=== PATIENT | female | born 1985 | race Caucasian/White ===

== ENCOUNTER 2016-11-07 15:41 | Emergency (ER) | payer MEDICAID ==
[2016-11-07 16:02] VITALS: BP 105/43
[2016-11-07] MEDS ORDERED: predniSONE TAB* 20 MG PO ONE (17:18)
--- NOTE | 2016-11-18 10:17 | UC ---
Skin Complaint HPI - HPI Summary HPI Summary: 31 YO FEMALE WITH CHRONIC HIVES X 2 MONTHS NOW WITH SWELLING OF HANDS AND FEET NO CP OR SOB - History of Current Complaint Chief Complaint: UCGeneralIllness Time Seen by Provider: 11/07/16 17:05 Stated Complaint: RASH Hx Obtained From: Patient Hx Last Menstrual Period: 10/31/16 Onset/Duration: Sudden Onset, Lasting Days Timing: Constant Onset Severity: Mild Current Severity: Mild Pain Intensity: 0 Pain Scale Used: 0-10 Numeric Location: Hand (Right), Hand (Left), Foot (Right), Foot (Left) Aggravating Factor(s): Nothing Alleviating Factor(s): Nothing Associated Signs & Symptoms: Positive: Rash - Allergy/Home Medications Allergies/Adverse Reactions: Allergies Allergy/AdvReac Type Severity Reaction Status Date / Time bee Allergy Anaphylatic Uncoded 11/07/16 16:02 Shock Home Medications: Home Medications diPHENhydraMINE PO* [Benadryl PO 25 MG TAB*] 25 mg PO Q6H PRN 11/07/16 [History Confirmed 11/07/16] Review of Systems Constitutional: Negative Skin: Rash Eyes: Negative ENT: Negative Respiratory: Negative Cardiovascular: Negative Gastrointestinal: Negative Genitourinary: Negative Motor: Negative Neurovascular: Negative Musculoskeletal: Negative Neurological: Negative Psychological: Negative Is Patient Immunocompromised?: No All Other Systems Reviewed And Are Negative: Yes PMH/Surg Hx/FS Hx/Imm Hx Previously Healthy: Yes - Surgical History Surgical History: Yes Surgery Procedure, Year, and Place: Tubal - Family History Known Family History: Positive: Hypertension - Social History Alcohol Use: None Substance Use Type: None Smoking Status (MU): Heavy Every Day Tobacco Smoker Amount Used/How Often: 1/2 ppd Length of Time of Smoking/Using Tobacco: started age 14 Physical Exam Triage Information Reviewed: Yes Appearance: No Pain Distress, Well-Nourished, Ill-Appearing Vital Signs: Initial Vital Signs Temp 98.4 F 11/07/16 15:57 Pulse 76 11/07/16 15:57 Resp 16 11/07/16 15:57 BP 105/43 11/07/16 15:57 Pulse Ox 98 11/07/16 15:57 Vital Signs Reviewed: Yes Eyes: Positive: Conjunctiva Clear ENT: Positive: Hearing grossly normal. Negative: Nasal congestion, Nasal drainage, Trismus, Muffled/hoarse voice Neck: Positive: Supple, Nontender Respiratory: Positive: Lungs clear, Normal breath sounds, No respiratory distress, No accessory muscle use Cardiovascular: Positive: RRR, No Murmur Abdomen Description: Positive: No Organomegaly, Soft. Negative: CVA Tenderness (R), CVA Tenderness (L), Distended Musculoskeletal: Positive: Other: - ANGIOEDEMA OF HANDS AND FEET Neurological: Positive: Alert Psychological Exam: Normal Skin Exam: Other - SCATTERED HIVES Course/Dx - Diagnoses Provider Diagnoses: ANGIOEDEMA. CHRONIC HIVES Discharge - Discharge Plan Condition: Stable Disposition: HOME Prescriptions: Fexofenadine (NF) [Kacey (NF)] 60 mg PO QAM PRN #14 tab PRN Reason: Itching Prednisone [Deltasone] 40 mg PO DAILY #10 tab hydrOXYzine HCL TAB* [Atarax TAB*] 25 - 50 mg PO DAILY PRN #20 tab PRN Reason: Itching Patient Education Materials: Angioedema (ED) Referrals: Khoa MERCADO,Edd Solano [Primary Care Provider] - As Soon As Possible Additional Instructions: recheck for new or worsening symptoms
== END 2016-11-07 17:30 | disposition home or self-care (01) ==
LOC: UCEAST 15:41
DX: T78.3XXA Angioneurotic edema, initial encounter (principal); Z91.030 Bee allergy status; F17.210 Nicotine dependence, cigarettes, uncomplicated
CPT/HCPCS: 99202; G0463; J7512

== ENCOUNTER 2017-07-16 17:59 | Emergency (ER) | payer OTHER ==
--- NOTE | 2017-07-16 19:37 | RAD ---
INDICATION: Bruising at the third distal metacarpal region following punching injury. COMPARISON: No relevant prior exams available on the [facility] PACS for comparison. TECHNIQUE: AP, and lateral views RIGHT hand. REPORT AND IMPRESSION: Soft tissue swelling superficial to the metacarpal phalangeal joints on the lateral view. Negative for fracture or articular malalignment within limits of 2 view radiographic exam.
[2017-07-16] MEDS ORDERED: HYDROcodone/ACETAMIN 5-325 MG* 1 TAB PO ONE (20:56)
--- NOTE | 2017-07-16 20:57 | ED ---
Upper Extremity Pain - HPI Summary HPI Summary: Complains of pain and swelling to right hand after punching a door 3 days ago. Denies loss of sensation or function, abrasion or laceration - History of Current Complaint Chief Complaint: EDExtremityUpper Stated Complaint: RT HAND INJURY Time Seen by Provider: 07/16/17 19:23 Hx Obtained From: Patient Hx Last Menstrual Period: 10/31/16 Mechanism Of Injury: Blunt Trauma Onset/Duration: Started Days Ago - Allergies/Home Medications Allergies/Adverse Reactions: Allergies Allergy/AdvReac Type Severity Reaction Status Date / Time No Known Drug Allergies Allergy Unknown Verified 07/16/17 18:01 Reaction Details bee Allergy Anaphylatic Uncoded 07/16/17 18:01 Shock Home Medications: Home Medications Divalproex DR TAB(*) [Depakote DR TAB(*)] 250 mg PO BID 07/16/17 [History Confirmed 07/16/17] Lurasidone(*) [Latuda] 20 mg PO DAILY 07/16/17 [History Confirmed 07/16/17] PMH/Surg Hx/FS Hx/Imm Hx Endocrine/Hematology History: Denies: Hx Diabetes Cardiovascular History: Denies: Hx Hypertension - Surgical History Surgery Procedure, Year, and Place: Tubal Infectious Disease History: No Infectious Disease History: Denies: Traveled Outside the [place] in Last 30 Days - Family History Known Family History: Positive: Hypertension - Social History Alcohol Use: None Substance Use Type: Reports: None Smoking Status (MU): Heavy Every Day Tobacco Smoker Amount Used/How Often: 1/2 ppd Length of Time of Smoking/Using Tobacco: started age 14 Review of Systems Constitutional: Negative Eyes: Negative ENT: Negative Cardiovascular: Negative Respiratory: Negative Gastrointestinal: Negative Genitourinary: Negative Musculoskeletal: Negative Skin: Negative Neurological: Negative Psychological: Normal All Other Systems Reviewed And Are Negative: Yes Physical Exam - Summary Physical Exam Summary: Mild swelling to the MCP joint of third and fourth fingers. Flexion and extension of right hand intact. No erythema, extra warmth, abrasions, lacerations. PMS intact in right hand Triage Information Reviewed: Yes Vital Signs On Initial Exam: Initial Vitals Temp Pulse Resp BP Pulse Ox 98.4 F 91 16 105/82 99 07/16/17 18:01 07/16/17 18:01 07/16/17 18:01 07/16/17 18:01 07/16/17 18:01 Vital Signs Reviewed: Yes Appearance: Positive: Well-Appearing Skin: Positive: Warm Head/Face: Positive: Normal Head/Face Inspection Eyes: Positive: Normal Neck: Positive: Supple Respiratory/Lung Sounds: Positive: Clear to Auscultation Cardiovascular: Positive: Normal Abdomen Description: Positive: Nontender Musculoskeletal: Positive: Normal Neurological: Positive: Normal Psychiatric: Positive: Normal AVPU Assessment: Alert - [place] Coma Scale Best Eye Response: 4 - Spontaneous Best Motor Response: 6 - Obeys Commands Best Verbal Response: 5 - Oriented Coma Scale Total: 15 Diagnostics - Vital Signs Vital Signs Temp Pulse Resp BP Pulse Ox 07/16/17 18:01 98.4 F 91 16 105/82 99 - Laboratory Lab Statement: Any lab studies that have been ordered have been reviewed, and results considered in the medical decision making process. - Radiology hand Xray Interpretation: No Acute Changes Radiology Interpretation Completed By: Radiologist Course/Dx - Course Course Of Treatment: Complains of pain and swelling to right hand after punching a door 2 days ago. Denies loss of sensation or function. X-ray negative for fracture. Mild swelling to the MCP joint of third and fourth digits. No erythema, abrasions or lacerations. Recommend ibuprofen, ice - Diagnoses Provider Diagnoses: Hand sprain Discharge - Sign-Out/Discharge Documenting (check all that apply): Discharge/Admit/Transfer - Discharge Plan Condition: Stable Disposition: HOME Patient Education Materials: Hand Sprain (ED) Referrals: Julian Leger [Primary Care Provider] - Additional Instructions: Ibuprofen, and ice 10-15 minutes at a time per hour. Cover hand with provided Charles bandage for protection. Return to the ED for any new or worsening symptoms - Billing Disposition and Condition Condition: STABLE Disposition: HOME
[2017-07-16 21:08] VITALS: BP 114/78
== END 2017-07-16 21:08 | disposition home or self-care (01) ==
LOC: ED 17:59
DX: S63.91XA Sprain of unspecified part of right wrist and hand, initial encounter (principal); W22.8XXA Striking against or struck by other objects, initial encounter; Y92.9 Unspecified place or not applicable; F17.200 Nicotine dependence, unspecified, uncomplicated
CPT/HCPCS: 99282

== ENCOUNTER 2017-09-23 12:31 | Emergency (ER) | payer OTHER ==
--- NOTE | 2017-09-23 13:22 | RAD ---
INDICATION: Cough COMPARISON: April 12, 2010 TECHNIQUE: PA and lateral dual-energy views were obtained. FINDINGS: Bones/Soft Tissues: There are no acute bony findings. Cardiomediastinal: The cardiomediastinal silhouette is normal. Lungs: There are no infiltrates. Pleura: There are no pleural effusions. Other: None IMPRESSION: NO ACTIVE DISEASE.
--- NOTE | 2017-09-23 13:25 | ED ---
Respiratory - HPI Summary HPI Summary: 32-year-old female presents with cough for the past week. She states she has been having chest pain when she coughs. She states it feels more like a tightness. She admits to shortness of breath. No abdominal pain. No nausea. No sore throat. She admits to sinus congestion that has not worsened. No ear pain. No headache. She's been using mucinex but has not been able to cough anything up. She is a smoker. No pain or swelling in her calf muscles. Does not have a family history of cardiac disease. No medical conditions. Chest pain is also reproducible. - History of Current Complaint Chief Complaint: EDUpperRespComplaint Stated Complaint: CHEST PRESSURE Time Seen by Provider: 09/23/17 13:02 Pain Intensity: 5 - Allergy/Home Medications Allergies/Adverse Reactions: Allergies Allergy/AdvReac Type Severity Reaction Status Date / Time No Known Drug Allergies Allergy Unknown Verified 07/16/17 18:01 Reaction Details bee Allergy Anaphylatic Uncoded 07/16/17 18:01 Shock PMH/Surg Hx/FS Hx/Imm Hx Endocrine/Hematology History: Denies: Hx Diabetes Cardiovascular History: Denies: Hx Hypertension - Surgical History Surgery Procedure, Year, and Place: Tubal Infectious Disease History: No Infectious Disease History: Denies: Traveled Outside the [place] in Last 30 Days - Family History Known Family History: Positive: Hypertension - Social History Alcohol Use: None Substance Use Type: Reports: None Smoking Status (MU): Heavy Every Day Tobacco Smoker Amount Used/How Often: 1/2 ppd Length of Time of Smoking/Using Tobacco: started age 14 Review of Systems Positive: Fever Positive: Chest Pain Positive: Shortness Of Breath, Cough Negative: Abdominal Pain All Other Systems Reviewed And Are Negative: Yes Physical Exam Triage Information Reviewed: Yes Vital Signs On Initial Exam: Initial Vitals Temp Pulse Resp BP Pulse Ox 97.5 F 84 16 114/77 98 09/23/17 12:44 09/23/17 12:44 09/23/17 12:44 09/23/17 12:44 09/23/17 12:44 Vital Signs Reviewed: Yes Appearance: Positive: Well-Appearing Skin: Positive: Warm, Dry Head/Face: Positive: Normal Head/Face Inspection Eyes: Positive: Normal, EOMI, MARIA, Conjunctiva Clear ENT: Positive: Normal ENT inspection, Pharynx normal, TMs normal Respiratory/Lung Sounds: Positive: Clear to Auscultation, Breath Sounds Present , Other - reproducible chest pain Cardiovascular: Positive: Normal, RRR Abdomen Description: Positive: Nontender, Soft Bowel Sounds: Positive: Present Musculoskeletal: Positive: Normal Neurological: Positive: Normal Psychiatric: Positive: Normal Diagnostics - Vital Signs Vital Signs Temp Pulse Resp BP Pulse Ox 09/23/17 12:44 97.5 F 84 16 114/77 98 - Laboratory Lab Statement: Any lab studies that have been ordered have been reviewed, and results considered in the medical decision making process. - Radiology chest Xray Interpretation: No Acute Changes Radiology Interpretation Completed By: Radiologist Disposition - Course Course Of Treatment: 32-year-old female presents with cough for the past week. She states she has been having chest pain when she coughs. She states it feels more like a tightness. She admits to shortness of breath. No abdominal pain. No nausea. No sore throat. She admits to sinus congestion that has not worsened. No ear pain. No headache. She's been using mucinex but has not been able to cough anything up. She is a smoker. No pain or swelling in her calf muscles. Does not have a family history of cardiac disease. No medical conditions. Chest pain is also reproducible. On exam lungs clear to auscultation. Heart regular rhythm. Chest x-ray normal. We'll treat as bronchitis with prednisone, Tessalon, inhaler. patient understands and agrees with plan. - Differential Dx - Cardiopulmonary Differential Diagnoses - Cardiopulmonary: Bronchitis, Lower Resp Infection, Pericarditis - Diagnoses Provider Diagnoses: Bronchitis Discharge - Sign-Out/Discharge Documenting (check all that apply): Patient Departure - Discharge Plan Condition: Good Disposition: HOME Prescriptions: Albuterol HFA INHALER* [Ventolin HFA Inhaler*] 1 puff INH Q6H PRN #1 mdi PRN Reason: Cough Benzonatate CAP* [Tessalon 100 MG CAP*] 100 mg PO TID PRN #21 cap PRN Reason: Cough predniSONE TAB* [Deltasone TAB*] 50 mg PO DAILY #4 tab Patient Education Materials: Acute Bronchitis (ED) Referrals: Julian Leger [Primary Care Provider] - Additional Instructions: Use Tessalon three times a day for cough Use inhaler one puff every 4 hours for cough as needed Take steroid once a day for 5 days Use humidifier or place warm bowls of water around the room Cough can last up to 4 weeks Take Tylenol and ibuprofen for pain every 6 hours Follow up with primary care physician in 5 days Return to ED if develop any new or worsening symptoms - Billing Disposition and Condition Condition: GOOD Disposition: Home
[2017-09-23] MEDS ORDERED: predniSONE TAB* 20 MG PO ONE (13:29)
[2017-09-23] MEDS ORDERED: Benzonatate CAP* 100 MG PO ONE (13:29)
[2017-09-23 13:40] VITALS: BP 112/72
== END 2017-09-23 13:36 | disposition home or self-care (01) ==
LOC: ED 12:31
DX: J40 Bronchitis, not specified as acute or chronic (principal); R07.9 Chest pain, unspecified; F17.200 Nicotine dependence, unspecified, uncomplicated
CPT/HCPCS: 71046; 99282; A9270-GY; J7512

== ENCOUNTER → 2017-12-07 09:47 | Emergency (ER) | payer OTHER ==
[~2017-12-07 09:47] MED LIST: Ibuprofen TAB* 600 MG PO ONE
--- NOTE | 2017-12-07 09:59 | ED ---
Upper Extremity Pain - HPI Summary HPI Summary: Pt. is a 32-year-old female who presents emergency department for hand pain after punching a van window last night. States she was angry and punched a window and now her hand is ecchymotic and edematous. She states the window did not break and she has no lacerations. Patient states she has done this before but does not believe she has broken any bones. She denies past medical history. Symptoms are mild in severity. Touching affected him makes symptoms worse. Rest makes symptoms better. - History of Current Complaint Chief Complaint: EDExtremityUpper Stated Complaint: RT HAND INJURY Time Seen by Provider: 12/07/17 09:57 Hx Obtained From: Patient Hx Last Menstrual Period: 10/31/16 - Allergies/Home Medications Allergies/Adverse Reactions: Allergies Allergy/AdvReac Type Severity Reaction Status Date / Time No Known Drug Allergies Allergy Unknown Verified 12/07/17 09:54 Reaction Details bee Allergy Anaphylatic Uncoded 07/16/17 18:01 Shock PMH/Surg Hx/FS Hx/Imm Hx Previously Healthy: Yes Endocrine/Hematology History: Denies: Hx Diabetes Cardiovascular History: Denies: Hx Hypertension - Surgical History Surgery Procedure, Year, and Place: Tubal Infectious Disease History: No Infectious Disease History: Denies: Traveled Outside the [place] in Last 30 Days - Family History Known Family History: Positive: Hypertension - Social History Occupation: Unemployed Lives: With Family Alcohol Use: None Substance Use Type: Reports: None Smoking Status (MU): Heavy Every Day Tobacco Smoker Amount Used/How Often: 1/2 ppd Length of Time of Smoking/Using Tobacco: started age 14 Review of Systems Positive: Other - Pain, bruising, edema to right hand Positive: Other - No laceration Neurological: Negative Negative: Weakness, Paresthesia, Numbness All Other Systems Reviewed And Are Negative: Yes Physical Exam Triage Information Reviewed: Yes Vital Signs On Initial Exam: Initial Vitals Temp Pulse Resp BP Pulse Ox 97.8 F 74 18 104/66 100 12/07/17 09:52 12/07/17 09:52 12/07/17 09:52 12/07/17 09:52 12/07/17 09:52 Vital Signs Reviewed: Yes Appearance: Positive: Well-Appearing - Pt. sitting in bed in NAD. Skin: Positive: Warm, Dry Head/Face: Positive: Normal Head/Face Inspection Eyes: Positive: Normal, EOMI Neck: Positive: Supple Musculoskeletal: Positive: Other - Ecchymosis, edema and pain noted to the dorsum of the right hand over the metacarpal 3 through 5. No breaks in skin. Full range of motion of digits and thumb. No proximal wrist or elbow pain. Good radial pulse. Neurological: Positive: Normal, CN Intact II-III Psychiatric: Positive: Affect/Mood Appropriate Procedures - Splinting Right Upper Extremity Pre-Made Type: charles wrap Pre-Proc Neuro Vasc Exam: normal Post-Proc Neuro Vasc Exam: normal Diagnostics - Vital Signs Vital Signs Temp Pulse Resp BP Pulse Ox 12/07/17 09:52 97.8 F 74 18 104/66 100 - Laboratory Lab Statement: Any lab studies that have been ordered have been reviewed, and results considered in the medical decision making process. Course/Dx - Course Course Of Treatment: Pt. presenting with isolated hand injury. No lacerations. Hand x-ray is negative per radiology. Results were discussed with patient. She states that every time she hits her hand she is always told that nothing is broken but she feels that her bones are "messed up." Offered to refer her to orthopedics for her concern but patient declines. Charles wrap was placed. Advised ice and elevate. Anti-inflammatories for pain. To follow-up with family doctor pain persists. - Diagnoses Differential Diagnosis/HQI/PQRI: Positive: Contusion, Fracture (Closed), Strain , Sprain Provider Diagnoses: Hand sprain, Hand contusion Discharge - Sign-Out/Discharge Documenting (check all that apply): Patient Departure - Discharge Plan Condition: Good Disposition: HOME Patient Education Materials: Hand Sprain (ED) Referrals: Julian Leger [Primary Care Provider] - Additional Instructions: Follow up with PCP if pain persist Ice and elevate NSAIDS for pain as directed such as motrin Return to ER if symptoms change or worsen - Billing Disposition and Condition Condition: GOOD Disposition: Home
--- NOTE | 2017-12-07 10:30 | RAD ---
HISTORY: injury to R hand COMPARISONS: None VIEWS: 4, Frontal, lateral, and oblique views of the right hand FINDINGS: BONE DENSITY: Normal. BONES: There is no displaced fracture. JOINTS: There is no arthropathy. ALIGNMENT: There is no dislocation. SOFT TISSUES: There is soft tissue swelling along the dorsum of the hand. OTHER FINDINGS: None. IMPRESSION: SOFT TISSUE SWELLING. NO ACUTE OSSEOUS INJURY. IF SYMPTOMS PERSIST, RECOMMEND REPEAT IMAGING.
[2017-12-07 11:10] VITALS: BP 105/59
== END | disposition home or self-care (01) ==
LOC: ED 09:47
DX: S63.91XA Sprain of unspecified part of right wrist and hand, initial encounter (principal); S60.221A Contusion of right hand, initial encounter; W22.8XXA Striking against or struck by other objects, initial encounter; Y92.9 Unspecified place or not applicable; Z91.030 Bee allergy status; F17.200 Nicotine dependence, unspecified, uncomplicated
CPT/HCPCS: 99282; A9270-GY

== ENCOUNTER 2017-12-12 09:27 | Emergency (ER) | payer OTHER ==
--- NOTE | 2017-12-12 09:51 | ED ---
Respiratory - History of Current Complaint Chief Complaint: EDShortnessOfBreath Stated Complaint: DIFF BREATHING Time Seen by Provider: 12/12/17 09:44 Pain Intensity: 0 - Allergy/Home Medications Allergies/Adverse Reactions: Allergies Allergy/AdvReac Type Severity Reaction Status Date / Time No Known Drug Allergies Allergy Unknown Verified 12/12/17 09:31 Reaction Details bee Allergy Anaphylatic Uncoded 12/12/17 09:31 Shock PMH/Surg Hx/FS Hx/Imm Hx Endocrine/Hematology History: Denies: Hx Diabetes Cardiovascular History: Denies: Hx Hypertension - Surgical History Surgery Procedure, Year, and Place: Tubal Infectious Disease History: No Infectious Disease History: Denies: Traveled Outside the [place] in Last 30 Days - Family History Known Family History: Positive: Hypertension - Social History Alcohol Use: None Substance Use Type: Reports: None Smoking Status (MU): Heavy Every Day Tobacco Smoker Amount Used/How Often: 1/2 ppd Length of Time of Smoking/Using Tobacco: started age 14 Physical Exam Vital Signs On Initial Exam: Initial Vitals Temp Pulse Resp BP Pulse Ox 97.8 F 85 18 115/80 97 12/12/17 09:28 12/12/17 09:28 12/12/17 09:28 12/12/17 09:28 12/12/17 09:28 Diagnostics - Vital Signs Vital Signs Temp Pulse Resp BP Pulse Ox 12/12/17 09:28 97.8 F 85 18 115/80 97 - Laboratory Lab Statement: Any lab studies that have been ordered have been reviewed, and results considered in the medical decision making process. Discharge - Discharge Plan Referrals: Session Julian JAMES [Primary Care Provider] - - Attestation Statements Document Initiated by Ricco: Yes
--- NOTE | 2017-12-12 09:52 | ED ---
Shortness of Breath - HPI Summary HPI Summary: The pt is a 32 y/o female presenting to [facility] c/o SOB since 3 months ago. She notes dyspnea, mid-sternal CP (described as a pressure), wheezing, productive cough (with clear-yellow phlegm), fever, and rhinorrhea (for weeks), but denies acid reflux, chills, and ear pain. The SOB And CP are aggravated by lying down and coughing. She got diagnosed with bronchitis 3 months ago and took Albuterol , Prednisone and cough medicine to no relief. The pt reports heavy daily smoking. - History of Current Complaint Chief Complaint: EDShortnessOfBreath Time Seen by Provider: 12/12/17 09:44 Hx Obtained From: Patient Onset/Duration: Lasting Weeks - 3 months, Still Present Timing: Constant Alleviating Factors: Nothing Associated Signs & Symptoms: Cough (Productive), Wheezing, Chest Pain w/Cough, Fever - Allergy/Home Medications Allergies/Adverse Reactions: Allergies Allergy/AdvReac Type Severity Reaction Status Date / Time No Known Drug Allergies Allergy Unknown Verified 12/12/17 09:31 Reaction Details bee Allergy Anaphylatic Uncoded 12/12/17 09:31 Shock PMH/Surg Hx/FS Hx/Imm Hx Previously Healthy: Yes Endocrine/Hematology History: Denies: Hx Diabetes Cardiovascular History: Denies: Hx Hypertension Respiratory History: Reports: Other Respiratory Problems/Disorders - Bronchitis dx 3 months ago Sensory History: Denies: Hx Deafness Psychiatric History: Reports: Hx Anxiety, Hx Bipolar Disorder, Other Psychiatric Issues/Disorders - OCD, Schizoaffective disorder - Cancer History Cancer Type, Location and Year: None reported - Surgical History Surgery Procedure, Year, and Place: Tubal ligation Infectious Disease History: No Infectious Disease History: Denies: Traveled Outside the [place] in Last 30 Days - Family History Known Family History: Positive: Hypertension - Social History Occupation: Employed Full-time Lives: Dormitory/Roommates - Significant other Alcohol Use: None Substance Use Type: Reports: None Smoking Status (MU): Heavy Every Day Tobacco Smoker Amount Used/How Often: 1/2 ppd Length of Time of Smoking/Using Tobacco: started age 14 Review of Systems Positive: Fever. Negative: Chills Negative: Ear Ache Positive: Chest Pain - Mid-sternal Respiratory: Other - Positive: wheezing, rhiniorrhea, dyspnea Positive: Shortness Of Breath, Cough - Productive Gastrointestinal: Negative - Acid reflux All Other Systems Reviewed And Are Negative: Yes Physical Exam - Summary Physical Exam Summary: General: well-appearing, no pain distress Skin: warm, color reflects adequate perfusion, dry Head: normal Eyes: EOMI, MARIA ENT: normal Neck: supple, nontender Respiratory: CTA, breath sounds present, Coughing noted Cardiovascular: RRR Abdomen: soft, nontender Bowel: present Musculoskeletal: normal, strength/ROM intact Neurological: sensory/motor intact, A&O x3 Psychological: affect/mood appropriate Triage Information Reviewed: Yes Vital Signs On Initial Exam: Initial Vitals Temp Pulse Resp BP Pulse Ox 97.8 F 85 18 115/80 97 12/12/17 09:28 12/12/17 09:28 12/12/17 09:28 12/12/17 09:28 12/12/17 09:28 Vital Signs Reviewed: Yes Diagnostics - Vital Signs Vital Signs Temp Pulse Resp BP Pulse Ox 12/12/17 09:28 97.8 F 85 18 115/80 97 - Laboratory Result Diagrams: 12/12/17 10:07 12/12/17 10:07 Lab Statement: Any lab studies that have been ordered have been reviewed, and results considered in the medical decision making process. - CT Chest/ Thorax CTA CT Interpretation Completed By: Radiologist - IMPRESSION: NO PULMONARY ARTERIAL FILLING DEFECT TO SUGGEST PULMONARY EMBOLISM. The ED physician reviewed this radiology report. - EKG 10:00 Cardiac Rate: NL - 70 bpm EKG Rhythm: Sinus Rhythm ST Segment: Normal Ectopy: None Course/Dx - Course Course Of Treatment: Medications reviewed. Allergies noted. Lab results and CT discussed with the patient. Plan is to go ahead and be more aggressive in treatment of the COPD component. Go to treat with a prednisone short course and then inhaled steroid. We'll also cover for any possible infection with azithromycin. We discussed smoking cessation. Patient will be following up with her doctor to further discuss smoking cessation and continued treatment. - Diagnoses Provider Diagnoses: Dyspnea, COPD (chronic obstructive pulmonary disease), Smoker, Bronchitis Discharge - Sign-Out/Discharge Documenting (check all that apply): Patient Departure - Discharge Plan Condition: Stable Disposition: HOME Prescriptions: Azithromyxin BRICE (NF) [Z-Brice (Zithromax) 250 mg tabs #6] 2 tab PO .TODAY, THEN 1 DAILY #6 tab Beclomethasone 80 MCG MDI(NF) [Qvar 80 MCG MDI(NF)] 2 puff INH BID #1 mdi predniSONE TAB* [Deltasone 20 MG TAB*] 40 mg PO DAILY #10 tab Patient Education Materials: COPD (Chronic Obstructive Pulmonary Disease) (ED) , Dyspnea (ED), How to Stop Smoking (ED), Acute Bronchitis (ED) Referrals: Session Julian JAMES [Primary Care Provider] - Additional Instructions: FOLLOW UP WITH YOUR DOCTOR. GET RECHECKED FOR ANY WORSENING OF YOUR CONDITION OR QUESTIONS OR CONCERNS. - Billing Disposition and Condition Condition: STABLE Disposition: Home - Attestation Statements Document Initiated by [employer]: Yes Documenting Scribe: Sherie Nix Provider For Whom Ricco is Documenting (Include Credential): Dr. Anurag Pope MD Scribe Attestation: Sherie Nevarez , scribed for Dr. Anurag Pope MD on 12/12/17 at 1222. Scribe Documentation Reviewed: Yes Provider Attestation: The documentation as recorded by the Sherie velasco accurately reflects the service I personally performed and the decisions made by me, Dr. Anurag Pope MD
[2017-12-12] MEDS ORDERED: Albuterol/Ipratropium NEB.SOL* Albuterol 2.5 MG/Ipratropium 0.5 MG 3 ML INH ONE (09:56)
[2017-12-12 10:25] LABS: Hematocrit 40 % (35-47); Hemoglobin 13.8 g/dl (12.0-16.0); Mean Corpuscular HGB Conc 34 g/dl (31-36); Mean Corpuscular Hemoglobin 33 pg (27-31); Mean Corpuscular Volume 95 fL (80-97); Mean Platelet Volume 8.6 um3 (7.4-10.4); Platelet Count 218 10^3/ul (150-450); Red Blood Count 4.23 10^6/ul (4.00-5.40); Red Cell Distribution Width 13 % (10.5-15); White Blood Count 7.6 10^3/ul (3.5-10.8)
[2017-12-12 10:29] LABS: ABS Basophils 0.1 10^3/ul (0-0.2); ABS Eosinophils 0.7 10^3/ul (0-0.6); ABS Lymphocytes 1.7 10^3/ul (1.0-4.8); ABS Monocytes 0.5 10^3/ul (0-0.8); ABS Neutrophils 4.8 10^3/ul (1.5-7.7); ABS Nucleated RBC 0 10^3/ul; Eosinophil % 9.3 % (0-6); Lymphocyte % 22.1 % (25-47); Nucleated Red Blood Cells % 0
[2017-12-12 10:33] LABS: INR 0.93 (0.77-1.02)
[2017-12-12 10:45] LABS: EGFR Non-African American 100.8 (>60)
[2017-12-12] MEDS ORDERED: Iohexol 350* (CONTRAST) 500 ML MDV IV ONE (10:53)
--- NOTE | 2017-12-12 11:42 | RAD ---
HISTORY: SOB,CHEST HEAVINESS,COUGH COMPARISONS: April 10, 2010 TECHNIQUE: Multiple contiguous axial CT scans of the chest were obtained after the administration of nonionic intravenous contrast, timed to the pulmonary arterial phase of contrast enhancement.. Coronal and sagittal multiplanar reformations are also submitted for review. FINDINGS: NECK AND THYROID: The lower neck and thyroid are unremarkable. CHEST WALL: There is no lower cervical, axillary, or supraclavicular lymphadenopathy by size criteria. HEART AND PERICARDIUM: The heart is unremarkable. AORTA AND PULMONARY VASCULATURE: There is no pulmonary arterial filling defect to suggest pulmonary embolism. There is no linear filling defect within the aorta to suggest aortic dissection. MEDIASTINUM: There is no mediastinal lymphadenopathy by size criteria. LUISA: There is no hilar lymphadenopathy by size criteria. AIRWAY AND ESOPHAGUS: The airway is unremarkable, without endobronchial filling defect. The esophagus is grossly normal. LUNG PARENCHYMA: There is minimal bullous change of the lung apices bilaterally. PLEURA: No pleural abnormalities are noted. UPPER ABDOMEN: The upper abdomen is unremarkable. BONES AND SOFT TISSUES: No bone or soft tissue abnormalities are noted. OTHER: None. IMPRESSION: NO PULMONARY ARTERIAL FILLING DEFECT TO SUGGEST PULMONARY EMBOLISM.
[2017-12-12] MEDS ORDERED: predniSONE TAB* 20 MG PO ONE (12:28)
[2017-12-12 12:43] VITALS: BP 141/73
== END 2017-12-12 12:42 | disposition home or self-care (01) ==
LOC: ED 09:27
DX: J44.9 Chronic obstructive pulmonary disease, unspecified (principal); R06.00 Dyspnea, unspecified; Z91.030 Bee allergy status; F17.200 Nicotine dependence, unspecified, uncomplicated
CPT/HCPCS: 36415; 71275; 80053; 80164; 82375; 82550; 82553; 83605; 83690; 83735; 83880; 84443; 84484; 84702; 85025; 85610; 85730; 86140; 93005; 99283; A9270-GY; J7512; Q9967

== ENCOUNTER 2019-03-05 15:22 | Emergency (ER) | payer OTHER ==
--- NOTE | 2019-03-05 15:37 | ED ---
Shortness of Breath - HPI Summary HPI Summary: Patient is a 33 y/o F presenting to the ED for a chief complaint of shortness of breath and chest pain. Patient is present with her son. Patient states that she has had chest pain for the last 2 days. The chest pain worsens with deep breaths and palpation of the chest. Any alleviating factors are denied. Patient denies cough or fever. Any recent travel, including airplane rides, or recent illness is denied. PMHx is significant for chronic obstructive pulmonary disease. PSHx is significant for tubal ligation. FMHx is significant for hypertension. She admits tobacco use. - History of Current Complaint Chief Complaint: EDShortnessOfBreath Time Seen by Provider: 03/05/19 15:34 Hx Obtained From: Patient Onset/Duration: Sudden Onset, Still Present Timing: Constant Current Severity: Moderate Dyspnea At: Rest Aggravating Factors: Deep Breaths, Other - Palpation of the chest Alleviating Factors: Nothing Associated Signs & Symptoms: Chest Pain Unrelated to Cough - Allergy/Home Medications Allergies/Adverse Reactions: Allergies Allergy/AdvReac Type Severity Reaction Status Date / Time No Known Drug Allergies Allergy Unknown Verified 12/12/17 09:31 Reaction Details bee Allergy Anaphylatic Uncoded 12/12/17 09:31 Shock PMH/Surg Hx/FS Hx/Imm Hx Previously Healthy: Yes Endocrine/Hematology History: Denies: Hx Diabetes Cardiovascular History: Denies: Hx Hypercholesterolemia, Hx Hypertension Respiratory History: Reports: Hx Chronic Obstructive Pulmonary Disease (COPD), Other Respiratory Problems/Disorders - Bronchitis dx 3 months ago Denies: Hx Asthma Sensory History: Denies: Hx Legally Blind, Hx Deafness Opthamlomology History: Denies: Hx Legally Blind EENT History: Denies: Hx Deafness Psychiatric History: Reports: Hx Anxiety, Hx Bipolar Disorder, Other Psychiatric Issues/Disorders - OCD, Schizoaffective disorder - Cancer History Cancer Type, Location and Year: None reported - Surgical History Surgical History: Yes Surgery Procedure, Year, and Place: Tubal ligation Infectious Disease History: No Infectious Disease History: Denies: Traveled Outside the [place] in Last 30 Days - Family History Known Family History: Positive: Hypertension - Social History Lives: With Family Alcohol Use: None Hx Substance Use: No Substance Use Type: Reports: None Hx Tobacco Use: Yes Smoking Status (MU): Heavy Every Day Tobacco Smoker Amount Used/How Often: 1/2 ppd Length of Time of Smoking/Using Tobacco: started age 14 Review of Systems Negative: Fever Positive: Chest Pain Positive: Shortness Of Breath. Negative: Cough All Other Systems Reviewed And Are Negative: Yes Physical Exam - Summary Physical Exam Summary: VITAL SIGNS: Reviewed. GENERAL: Patient is a well-developed and nourished FEMALE who is lying comfortable in the stretcher. Patient is not in any acute respiratory distress. HEAD AND FACE: No signs of trauma. No ecchymosis, hematomas or skull depressions. No sinus tenderness.. EYES: PERRLA, EOMI x 2, No injected conjunctiva, no nystagmus. EARS: Hearing grossly intact. Ear canals and tympanic membranes are within normal limits. MOUTH: Oropharynx within normal limits. NECK: Supple, trachea is midline, no adenopathy, no JVD, no carotid bruit, no c- spine tenderness, neck with full ROM. CHEST: Symmetric, no tenderness at palpation. Reproducible chest pain. LUNGS: Clear to auscultation bilaterally. No wheezing or crackles. CVS: Regular rate and rhythm, S1 and S2 present, no murmurs or gallops appreciated. ABDOMEN: Soft, non-tender. No signs of distention. No rebound, no guarding, and no masses palpated. Bowel sounds are normal. EXTREMITIES: FROM in all major joints, no edema, no cyanosis or clubbing. NEURO: Alert and oriented x 3. No acute neurological deficits. Speech is normal and follows commands. SKIN: Dry and warm. Triage Information Reviewed: Yes Vital Signs On Initial Exam: Initial Vitals Temp Pulse Resp BP Pulse Ox 97.7 F 94 14 116/76 97 03/05/19 15:23 03/05/19 15:23 03/05/19 15:23 03/05/19 15:23 03/05/19 15:23 Vital Signs Reviewed: Yes Procedures - Sedation Patient Received Moderate/Deep Sedation with Procedure: No Diagnostics - Vital Signs Vital Signs Temp Pulse Resp BP Pulse Ox 03/05/19 15:23 97.7 F 94 14 116/76 97 - Laboratory Result Diagrams: 03/05/19 15:46 03/05/19 15:46 Lab Statement: Any lab studies that have been ordered have been reviewed, and results considered in the medical decision making process. - Radiology Chest X-ray Radiology Interpretation Completed By: Radiologist Summary of Radiographic Findings: Chest X-ray IMPRESSION: NO ACTIVE CARDIOPULMONARY DISEASE. Reviewed by Dr. Holder. - EKG 15:29 Cardiac Rate: NL - 81 BPM EKG Rhythm: Sinus Rhythm ST Segment: Normal Ectopy: None EKG Comparison: No Significant Change - From 12/12/17 Summary of EKG Findings: EKG at 15:29 shows normal sinus rhythm with 81 BPM, no ST elevations, no STEMI. Similar to previous EKG on 12/12/17. Reviewed and interpreted by Dr. Holder. Re-Evaluation - Re-Evaluation First Eval Re-Evaluation Time: 17:14 Change: Improved Comment: At 17:14, patient is feeling better and ready for discharge. Course/Dx - Course Assessment/Plan: Patient is a 33 y/o F presenting to the ED for a chief complaint of shortness of breath and chest pain. Patient is present with her son. Patient states that she has had chest pain for the last 2 days. The chest pain worsens with deep breaths and palpation of the chest. Any alleviating factors are denied. Patient denies cough or fever. Any recent travel, including airplane rides, or recent illness is denied. PMHx is significant for chronic obstructive pulmonary disease. PSHx is significant for tubal ligation. FMHx is significant for hypertension. She admits tobacco use. Blood test result are without any significant abnormality. EKG shows a normal sinus rhythm without any ST elevations. Chest x-ray shows no acute cardiopulmonary disease. In the ED course, the patient was given toradol and her symptoms have improved. Patient reports that all symptoms have resolved. Patient Heart score is: 1. Therefore, there is low suspicion for CAD. Patient is not hypoxic or tachycardic. Wells criteria is: 0. Therefore, there is no suspicion for PE. Patient has no abdominal bruit thus no suspicion for AAA. Patients pain does not radiate to the back and pain has resolved thus there is low suspicion for aortic dissection. I discussed all the findings and test results with the patient. Patient was instructed to return to the emergency room immediately if any of the symptoms return or worsen. Patient understands and agrees. Plan of care was discussed with the patient and the patient understands and agrees. All questions were answered at the patient's satisfaction. There were no further complaints or concerns. PE before discharge: CVS: S1 and S2 present. No murmurs appreciated. Abdominal exam before discharge: Soft, non-tender. No signs of distention. No rebound no guarding, and no masses palpated. Bowel sounds are normal. Patient is alert and oriented x 3. Patient is hemodynamically stable. - Diagnoses Provider Diagnoses: Chest wall pain Discharge ED - Sign-Out/Discharge Documenting (check all that apply): Patient Departure - Discharge - Discharge Plan Condition: Stable Disposition: HOME Prescriptions: Naproxen [Naproxen 500 mg tab] 500 mg PO BID PRN #20 tablet PRN Reason: Pain - Moderate Patient Education Materials: Chest Wall Pain (ED) Forms: *Work Release Referrals: Session Julian JAMES [Primary Care Provider] - Additional Instructions: FOLLOW UP WITH YOUR PRIMARY CARE PROVIDER WITHIN 3 DAYS. RETURN TO THE EMERGENCY DEPARTMENT FOR ANY WORSENING OR NEW SYMPTOMS. - Billing Disposition and Condition Condition: STABLE Disposition: Home - Attestation Statements Document Initiated by Scribe: Yes Documenting Scribe: Bina Jimenez Provider For Whom Ricco is Documenting (Include Credential): Harris Holder MD Scribe Attestation: Bina Nevarez scribed for Harris Holder MD on 03/05/19 at 1840. Scribe Documentation Reviewed: Yes Provider Attestation: The documentation as recorded by the Bina velasco accurately reflects the service I personally performed and the decisions made by Harris lawrence MD Status of Scribe Document: Viewed
[2019-03-05] MEDS ORDERED: Ketorolac INJ* 30 MG/ML 1 ML VIAL IV ONE (15:45)
[2019-03-05 15:55] LABS: ABS Lymphocytes 1.1 10^3/ul (1.0-4.8); ABS Monocytes 0.5 10^3/ul (0-0.8); ABS Neutrophils 1.9 10^3/ul (1.5-7.7); Eosinophil % 0.2 %; Hematocrit 44 % (35-47); Lymphocyte % 30.9 %; Mean Corpuscular HGB Conc 35 g/dL (31-36); Mean Corpuscular Hemoglobin 32 pg (27-31); Mean Corpuscular Volume 92 fL (80-97); Nucleated Red Blood Cells % 0.1; Platelet Count 194 10^3/uL (150-450); Red Cell Distribution Width 13 % (10-15); White Blood Count 3.6 10^3/uL (3.5-10.8)
[2019-03-05 16:28] LABS: Albumin 4.5 g/dL (3.2-5.2); BUN/Creatinine Ratio 11.3 (8-20); EGFR African American 132.5 (>60); EGFR Non-African American 109.5 (>60); Globulin 2.3 g/dL (2-4); Total Bilirubin 0.4 mg/dL (0.2-1.0); Total Protein 6.8 g/dL (6.4-8.9)
[2019-03-05 17:33] VITALS: BP 113/71
== END 2019-03-05 17:32 | disposition home or self-care (01) ==
LOC: ED 15:22
DX: R07.89 Other chest pain (principal); J44.9 Chronic obstructive pulmonary disease, unspecified; F41.9 Anxiety disorder, unspecified; F31.9 Bipolar disorder, unspecified; F17.200 Nicotine dependence, unspecified, uncomplicated
CPT/HCPCS: 36415; 71046; 80053; 82550; 84484; 85025; 93005; 96374; 99282; J1885